=== PATIENT | male | born 1930 | race Caucasian/White ===

== ENCOUNTER → 2016-09-30 | Outpatient (CLI) | payer MEDICARE, OTHER ==
[~2016-09-30] MED LIST: ALBUTEROL2.5 MG/31 INH; BREO ELLIPTA 11 EACH INH; CALCIUM 600 +1 EAC4 PO; CORDARONE,PACE200 MG PO; FLOMAX0.4 MG PO; FLONASE 50 MCG/16 GM NOSE; KCL - MICRO-K10 MEQ PO; LANOXIN (DIGI250 MCG PO; LASIX40 MG PO; LEVAQUIN500 MG PO; LOPRESSOR25 MG PO; NORCO 5-325 TA1 EACH PO; SINGULAIR10 MG PO; SYMBICORT 16010.2 GM INH; TEARS NATURALE30 ML; TERAZOSIN HCL10 MG PO; THERA-VITE W/ B1 TAB PO; XARELTO20 MG PO
== END ==
LOC: GKIC 11:00
DX: R91.1 Solitary pulmonary nodule (principal); Z12.2 Encounter for screening for malignant neoplasm of respiratory organs; I31.3 Pericardial effusion (noninflammatory); E04.1 Nontoxic single thyroid nodule; K76.89 Other specified diseases of liver
CPT/HCPCS: A9552

== ENCOUNTER 2016-10-04 19:08 | Emergency (ER) | payer MEDICARE, OTHER ==
--- NOTE | ~2016-10-04 | ENPV ---
Vascular Upper Extremities Veins Procedure Demographics Patient Name CECI KAY Date of Study 10/04/2016 Patient Number [id number] Gender Male Date of 1930 Age 86 Visit Number [id number] Height Weight Number Room Number BSA BMI Referring Wade IVERSON Interpreting Pj Tony MD Physician Physician Physician Ordering Wade Koch Risk Control Director Physician KISHOR Normalizer Sharan Jara RDCS, RVT, RDMS, MANAGER TALENT ACQUISITION Conclusions Summary 1) Partially occlusive subacute superficial venous thrombus involving a small portion of the right upper mid cephalic vein. 2) Large avascular probable hematoma involving nearly the entire upper biceps region. 3) Preliminary results given to the ER provider at the conclusion of the exam. Procedure Type of Study: Veins:Upper Extremities Veins, Upper Extremity Right. Additional Indications:Cancer, Trauma. Appropriate Use Criteria:9 Patient Status:STAT. Study Location:ER. Technical Quality:Good visualization. Velocities are measured in cm/s ; Diameters are measured in cm Right UE Vein Measurements 2D and Doppler Measurements + + + + + +---------+ !Location !Visualized !Compressibility !Thrombosis !Signal !Reflux ! + + + + + +---------+ !IJV !Yes !Yes !None !Phasic !No ! + + + + + +---------+ !SCV !Yes !Yes !None !Phasic !No ! + + + + + +---------+ !Innominate !Yes !Yes !None !Phasic !No ! + + + + + +---------+ !Axillary !Yes !Yes !None !Phasic !No ! + + + + + +---------+ !Brachial !Yes !Yes !None !Phasic !No ! + + + + + +---------+ !Radial !Yes !Yes !None !Phasic !No ! + + + + + +---------+ !Ulnar !Yes !Yes !None !Phasic !No ! + + + + + +---------+ !Basilic !Yes !Yes !None !Phasic !No ! + + + + + +---------+ !Cephalic !Yes !Partial !Sub-acute !Diminished !No ! + + + + + +---------+ Impressions Right Impression Large bruising in the right biceps region s/p PET scan a few days ago. Cannot rule out extravascular bolus injection into soft tissue. There is no evidence of deep vein thrombosis in the right upper extremity. The basilic vein does not have superficial thrombus. The right mid upper arm cephalic vein has partial superficial thrombus. The age of this thrombus is inconclusive. It is non occlusive. There is a large bruise and probable hematoma related to trauma and or a large extravascular injection from a PET CT injection. It occupies the entire biceps region and is at least 4.8 cm long x 3.3 cm trans. This probable hematoma is avascular. Signature dtt: KIM EMERY dtd: 10/04/162005 Physician Self Edit
--- NOTE | ~2016-10-04 | ER ---
PATIENT'S NAME: ELIZACECI [facility] AGE: 86 Y [address] ROOM: [place] [address] LOCATION: [facility] ADMIT DATE: 10/04/2016 ER/Outpatient Report DISCHARGE DATE: 10/04/2016 FAMILY PHYSICIAN: PHYSICIAN, NO ATTENDING PHYSICIAN: Gissel Erickson Time of Patient's Arrival: 1908 hours. Time of Patient's Evaluation: 1922 hours. CHIEF COMPLAINT: Right arm bruising and swelling. HISTORY OF PRESENT ILLNESS: This is an 86-year-old male who presents to the ER. He states that he had a PET scan done on Friday. They did place an IV in his right AC. He states he did have a little bit of bruising around that site, but that has been improving and then today he went camping and he noticed a bruise to his biceps and then the bruise continued to get bigger and bigger and his muscle in his biceps started to become firm and painful. He states he does not know of any new injury today. He is not for sure if maybe he got bit by a bug or not. He states that he has had no fever or chills. No new shortness of breath. No chest pain. No troubles with bowel movements or urination. No other problems at this time. ALLERGIES: NO KNOWN ALLERGIES. MEDICATIONS: Please see medication list in nurse's notes. PAST MEDICAL HISTORY: 1. COPD and frequent pneumonias in the past. 2. Hypertension. 3. Asthma. 4. He has Afib and a spot on his lung, what they are currently looking at. PAST SURGICAL HISTORY: Right shoulder, cholecystectomy, tonsil, and adenoids. SOCIAL HISTORY: He did quit smoking 45 years ago. Denies any drug or alcohol use. REVIEW OF SYSTEMS: All systems are reviewed and are negative with the exception of those discussed in HPI. PATIENT'S NAME: [facility] AGE: 86 Y [address] ROOM: [place] [address] LOCATION: [facility] ADMIT DATE: 10/04/2016 ER/Outpatient Report DISCHARGE DATE: 10/04/2016 FAMILY PHYSICIAN: PHYSICIAN, INDERJIT ATTENDING PHYSICIAN: Gissel Erickson PHYSICAL EXAMINATION: VITAL SIGNS: Weight 97.5 kg taken, blood pressure 163/78, pulse 86, respirations 18, temperature 98.3 degrees tympanically, and saturations 95% on room air. Arden Coma Score is 15. GENERAL: Alert, calm, well-developed, 86-year-old, in no acute distress. LUNGS: Clear to auscultation bilaterally. HEART: Irregular rate and rhythm. ABDOMEN: Soft, nontender. He has good bowel sounds throughout. EXTREMITIES: He does have full range of motion of his upper extremities. He does have a hematoma noted to his right biceps, it is quite large, approximately measuring 5 x 4 cm. He has some firmness to his biceps, it is slightly tender to palpate. There is no warmth to touch. He does have some healing stages of bruising noted to his right antecubital. He has full range of motion of all limbs. LABORATORY DATA: CBC: White count of 7.6, hemoglobin 13.5, platelets 200, and ANC 5.1. INR is 1.06. CMS was unremarkable. Doppler ultrasound was done of his right upper extremity shows no DVT and this is reported by the tech. IMPRESSION: Hematoma to right upper extremity. ASSESSMENT AND PLAN: We did give the patient a Fulton here in the emergency room and we will send him home with a prescription for Fulton to use as directed. We did place an Jeancarlos wrap to the arm. He needs to monitor his symptoms closely. We would like him to follow up with his primary care physician on Friday or Friday for followup care or sooner if any symptoms worsen. The patient and the patient's understand and agree with care. KANU PEARL PA-C FOR MD FRANCESCO ANTONIO/lidia /[id number] d: t: 10/08/16 1247, OUTPATIENT REPORT
[~2016-10-04 19:08] MED LIST changes: -BREO ELLIPTA 11 EACH INH; -FLONASE 50 MCG/16 GM NOSE; -KCL - MICRO-K10 MEQ PO; -LANOXIN (DIGI250 MCG PO; -LEVAQUIN500 MG PO; -NORCO 5-325 TA1 EACH PO; -TEARS NATURALE30 ML; -THERA-VITE W/ B1 TAB PO
[2016-10-04 19:48] LABS: BASOPHIL % 0.3 %; EOSINOPHIL # 0.2 K/uL (0.0-0.5); HEMATOCRIT 40.1 % (33.0-50.0); HEMOGLOBIN 13.5 g/dL (11.0-16.0); IMMATURE GRANULOCYTE % 0.4 %; LYMPHOCYTE # 1.6 K/uL (0.8-4.0); LYMPHOCYTE % 21.4 %; MCH 30.1 pg (27.0-34.0); MCHC 33.7 gm/dL (32.0-36.5); MCV 89.5 fl (83.0-98.0); MONOCYTE # 0.7 K/uL (0.0-1.0); MONOCYTE % 9.4 %; MPV 9.8 fl (9.4-12.4); NEUTROPHIL # (ANC) 5.1 K/uL (1.4-9.0); NEUTROPHIL % 66.5 %; NRBC % 0 /100WBC (0-0.00); PLATELET COUNT 200 K/uL (150-450); RBC 4.48 M/uL (3.50-5.50); RDW-CV 14.2 % (11.9-14.6); WBC 7.6 K/uL (4.0-11.0)
[2016-10-04 19:57] LABS: INR - (THERAPEUTIC) 1.06 (0.92-1.07); PROTIME 11.1 SECONDS (9.8-11.4); PTT 29 SECONDS (25-32)
[2016-10-04 20:05] LABS: ANION GAP 10.9 (10.0-19.0); CALCIUM 8.7 mg/dL (8.5-10.5); CREATININE 1.1 mg/dL (0.6-1.3); POTASSIUM 3.9 mMol/L (3.7-5.1); TOTAL BILIRUBIN 0.7 mg/dL (0.0-1.5); TOTAL PROTEIN 6.7 g/dL (6.0-8.4)
[2016-10-28] MEDS ORDERED: BREO ELLIPTA 11 EACH INH (10:31)
[2016-10-28] MEDS ORDERED: FLONASE 50 MCG/16 GM NOSE (10:34)
[2016-10-28] MEDS ORDERED: TEARS NATURALE30 ML (10:35)
[2016-10-30] MEDS ORDERED: NORCO 5-325 TA1 EACH PO (15:22)
== END 2016-10-04 21:06 | disposition disaster alternative care site (69) ==
LOC: GMED 19:08
PROVIDERS: Physician Assistant Medical
DX: S40.021A Contusion of right upper arm, initial encounter (principal); I10 Essential (primary) hypertension; J44.9 Chronic obstructive pulmonary disease, unspecified; I48.91 Unspecified atrial fibrillation; Z90.49 Acquired absence of other specified parts of digestive tract; Z90.89 Acquired absence of other organs; Z98.890 Other specified postprocedural states; Z79.899 Other long term (current) drug therapy; Z87.891 Personal history of nicotine dependence; X58.XXXA Exposure to other specified factors, initial encounter; R22.31 Localized swelling, mass and lump, right upper limb

== ENCOUNTER 2016-10-08 22:14 | Inpatient (IN) | payer MEDICARE, OTHER ==
[~2016-10-08] VITALS: Ht 172.7 cm; Wt 98.1 kg
--- NOTE | ~2016-10-08 | ECHO ---
Transthoracic Echocardiography Report (TTE) Demographics Patient Name CECI KAY Date of Study 10/11/2016 Patient Number [id number] Visit Number [id number] Date of 1930 Room Number G6313 Gender Male Number Age 86 year(s) Referring Kirstin Booth Food Vendor Sharan Jara RDCS, Physician RVT, RDMS, FUSION JUNCTURE GRINDER Physician Interpreting Jluis Zhao MD Multi Sensor Operator Physician Supervising Ordering Kirstin Booth MD, MD/MLP Physician Nurse Stress Farm Machinery Set Up Mechanic Conclusions Contractility Score Summary Global Left Ventricular Hypokinesis was noted. Summary Technically difficult exam. The estimated left ventricular ejection fraction is 50%. Mild to moderate left ventricular hypertrophy. Biatrial dilatation. Mild pulmonary hypertension. Small pericardial effusion without tamponade. Sclerotic aortic and mitral valves. Procedure Type of Study TTE procedure:2D Echocardiogram, M-Mode, Doppler , Color Doppler. Procedure Date Date: 10/11/2016 Start: 11:07 AM Study Location: Inpatient Portable Technical Quality: Fair due to lung interference. Indications:Atrial fibrillation and Atrial fibrillation. Additional Indications:Pneumonia Appropriate Use Criteria: 9 Patient Status: Routine Rhythm: Atrial fibrillation HR: 73 bpm BP: 169/77 mmHg M-Mode/2D Measurements LV Diastolic Dimension: 5.4 cm LV Systolic Dimension: 4.33 cm LV Septum Diastolic: 1.35 cm LV PW Diastolic: 1.33 cm AO Root Dimension: 3.2 cm Cardiac Output: 5.96 l/min AV Cusp Separation: 1.9 cm RV Diastolic Dimension: 3.46 cm LA volume: 179 ml IVC Inspiration: 2.2 cm LVOT: 2.2 cm RV Base: 3.5 cm LVOT VTI: 21.5 cm RV Mid: 2.5 cm LV Stroke volume: 81.69 ml TAPSE: 3.1 cm TDI-S': 13 cm/s Doppler Measurements AV Peak Velocity: 1.84 m/s MV Peak E-Wave: 1.13 m/s AV Peak Gradient: 13.54 mmHg AV Mean Gradient: 6 mmHg MV P1/2t: 50 msec LVOT Peak Velocity: 1.25 m/s TR Velocity:2.62 m/s PV Peak Velocity: 1.06 m/s TR Gradient:27.46 mmHg PV Peak Gradient: 4.49 mmHg Estimated RAP:15 mmHg Estimated PASP: 42.46 mmHg Estimated RVSP: 42 mmHg E' Septal Velocity: 0.07 m/s E' Lateral Velocity: 0.08 m/s Findings Left Ventricle The left ventricle is normal in size . Mild to moderate concentric left ventricular hypertrophy. Mildly depressed systolic function. Diastolic function indeterminate due to patient's arrhythmia. Right Ventricle Normal right ventricle structure and function. Left Atrium The left atrium is severely dilated Right Atrium The right atrium is mild to moderately dilated. Dilated IVC with poor inspiratory collapse consistent with elevated RA pressure. Mitral Valve Moderate mitral annular calcification. Moderate calcification of the mitral valve. Moderate mitral regurgitation by color Doppler. Aortic Valve The aortic valve is severely sclerotic. There is trivial aortic regurgitation by color Doppler. Tricuspid Valve Trivial tricuspid regurgitation by color Doppler. There is mild pulmonary hypertension. The pulmonary pressure (RVSP) is 42 mmHg. Pulmonic Valve Mild pulmonic valve regurgitation by color Doppler. Pericardial Effusion Small anterior pericardial effusion. There is no echocardiographic evidence of cardiac tamponade. Miscellaneous Visualized portions of the aortic root and ascending aorta appear normal in size. Pleural Effusion No evidence of pleural effusion. Contractility Score LV regional wall motion:(0-Non visualized 1-Normal 2-Hypokinesis 3-Akinesis 4-Dyskinesis 5-Aneurysm) Signature dtt: Pvael Bazzi (cardio) dtd: 10/11/16 1107 Physician Self Edit
--- NOTE | ~2016-10-08 | ER ---
PATIENT'S NAME: CECI KAY [facility] AGE: 86 Y [address] ROOM: [place] [address] LOCATION: [facility] ADMIT DATE: 10/09/2016 ER/Outpatient Report DISCHARGE DATE: FAMILY PHYSICIAN: Jayy Fulton MD ATTENDING PHYSICIAN: Jayy Fulton HISTORY OF PRESENT ILLNESS: An 86-year-old male who presents today with chief complaint that started approximately an hour or 15 minutes ago. He says he has a cough that is productive of reddish sputum. He also has fatigue, fever, chills, and shortness of breath. The patient says that he felt increasingly short of breath after he woke up from his nap and put himself on some oxygen which he has for his COPD. He says that he was just at an appointment with Dr. Wray a CT surgeon for evaluation of this right upper lobe mass. Said that he felt fine during that appointment and felt fine for that appointment, then went home, and then when he woke up from his nap felt feverish and had some coughing episodes that was productive of reddish sputum. He denies headache, dizziness, lightheadedness, nausea, vomiting, diarrhea, or any other complaints. He denies any chest pain at this time. PAST MEDICAL HISTORY: Hypertension, COPD, atrial fibrillation on digoxin and Xarelto, right upper lobe nodule. SURGICAL HISTORY: Right knee, right shoulder. SOCIAL HISTORY: He is an ex-smoker, but quit 45 years ago. Rare alcohol. Denies any drug use. MEDICATIONS: Please see med list. ALLERGIES: NONE. REVIEW OF SYSTEMS: Reviewed by me and with the exception of those discussed in the HPI. PHYSICAL EXAMINATION: VITAL SIGNS: The patient is 5 feet 8 inches. He weighs 96.1 kilos. Blood pressure 165/75, heart rate 111, respiratory rate 24, temperature is 102 tympanic, saturations are 92% on 2 L nasal cannula. GENERAL: The patient is uncomfortable appearing although nontoxic. He is PATIENT'S NAME: CECI KAY [facility] AGE: 86 Y [address] ROOM: [address] [address] LOCATION: [facility] ADMIT DATE: 10/09/2016 ER/Outpatient Report DISCHARGE DATE: FAMILY PHYSICIAN: Jayy Fulton MD ATTENDING PHYSICIAN: Jayy Fulton speaking in full sentences. He is not actively vomiting or retching at this time. He feels warm to touch. He is able to speak in full sentences. He is coughing intermittently and it is productive of some pinkish sputum as well. He is A and O x4. EYES: His pupils are equal and reactive to light. HEART: His heart rate, at this time, he is tachycardic and it is irregularly irregular. His pulses are strong. He has cap refills less than 2 seconds. ABDOMEN: Soft, nontender, nondistended. No guarding or rebound. LUNGS: They sound clear except at the bases where he had faint crackles left and right, but he has no retractions or splinting but he is tachypneic to the mid 20s at this time. EXTREMITIES: Bruising of that right upper extremity and he has 1+ bilateral pedal edema. EMERGENCY ROOM COURSE: An EKG was done. On my read, his EKG shows atrial fibrillation with RVR. Ventricular rate is 104 at this time. Chest x-ray on my read does not appear to show any acute cardiopulmonary pathology. We did check other blood work including CBC, CMS, lactate, procalcitonin, CRP, digoxin level, cardiac enzymes, BNP, coags, and blood cultures x2. The blood work shows a white count of 12.4, H and H is 12.5/37.4, platelets are 182. PTT is 29, PT is 11.6, INR is 1.1. Sodium is 140, potassium 4, chloride 107, CO2 of 27, anion gap 10, glucose 136, BUN 22, creatinine is 1, alkaline phosphatase is 60, AST is 19, ALT 26. GFR is 68. CK-MB is 1. Troponin is less than 0.04. CRP is 3.47. ProBNP is 1471. Digoxin level is 1.34, so in therapeutic limits. Procalcitonin is less than 0.05. Lactic acid was 1.34. A CT chest was also done for his being on Xarelto and coughing up bloody sputum. On it, it shows that he has a left lower lobe consolidation and a multifocal right lower lobe consolidation with focal patchy areas of consolidation in the right upper lobe and a spiculated right upper lobe 2 cm lung mass, but no PE. This was discussed with the patient. He continues to have an oxygen requirement at this time and be feverish and not feel well. We will be admitting him at this time. We will give him ceftriaxone and azithromycin as he has not had any recent hospitalizations and we will admit him to the hospital. I discussed this with Dr. Singh covering in for Dr. Fulton. The patient admitted in stable condition. IMPRESSION: Pneumonia. KRISTOPHER ROUSSEAU MD PATIENT'S NAME: CECI KAY [facility] AGE: 86 Y [address] ROOM: [address] [address] [facility] ADMIT DATE: 10/09/2016 ER/Outpatient Report DISCHARGE DATE: FAMILY PHYSICIAN: Jayy Fulton MD ATTENDING PHYSICIAN: Jayy Fluton/lidia /[id number] d: 10/09/16 0358 t: 10/09/16 0608, OUTPATIENT REPORT
--- NOTE | ~2016-10-08 | CON ---
PATIENT'S NAME: ELIZACECI [facility] AGE: 86 Y [address] ROOM: [place] [address] LOCATION: [facility] ADMIT DATE: 10/11/2016 Consultation DISCHARGE DATE: FAMILY PHYSICIAN: Jayy Fulton MD ATTENDING PHYSICIAN: Jayy Fulton REFERRING PHYSICIAN: Pavel Hair MD REASON FOR CONSULTATION: V-tach. HISTORY OF PRESENT ILLNESS: This is an 86-year-old gentleman, well known to Dr. Hair, with a history of chronic atrial fib, hypertension, and COPD. He was originally admitted with complaints of shortness of breath, cough, and fever. He was diagnosed with pneumonia. He is currently being treated with IV antibiotics. Yesterday, he had a 7-beat run of wide-complex tachycardia, and renal and magnesium level were obtained. His potassium was replaced and he has not had any further episodes of VT. He had an echocardiogram done in 2016, that showed an EF at that time of 50%. Currently, he denies any exertional chest pain. He does have shortness of breath, but it is no worse than it has been. He denies orthopnea, PND, or pedal edema, and he does not feel any palpitations. PAST MEDICAL HISTORY: 1. Essential hypertension. 2. Chronic atrial fibrillation, status post failed cardioversion 06/20/2015 and 07/18/2015. 3. Long-term anticoagulation. 4. Asthma. 5. COPD. 6. Gastric esophageal reflux disease. 7. Arthritis. 8. Lung mass. 9. Pneumonia x5. PAST SURGICAL HISTORY: 1. Appendectomy in the 1960s. 2. Back surgery. 3. Lumbar diskectomy. 4. Cholecystectomy. 5. Right knee replacement. 6. Open reduction and internal fixation of a humerus fracture. 7. Cardioversion 06/20/2015 as well as 07/18/2015. ALLERGIES: NONE TO MEDICATION. PATIENT'S NAME: ELIZACECI [facility] AGE: 86 Y [address] ROOM: [place] [address] LOCATION: [facility] ADMIT DATE: 10/11/2016 Consultation DISCHARGE DATE: FAMILY PHYSICIAN: Jayy Fulton MD ATTENDING PHYSICIAN: Goldfish,Jayy L HOME MEDICATIONS: 1. Advair Diskus 250/50 mcg aerosol powder 1 puff once a day. 2. Calcium plus vitamin D 600/200 mg 1 tablet daily. 3. Digoxin 0.25 mg once a day. 4. Flomax 0.4 mg 1 capsule 30 minutes after the same meal each day. 5. Lasix 40 mg 1 tablet daily. 6. Ipratropium/albuterol 0.5/2.5 mg in 3 mL nebulizer treatments every 6 hours. 7. Metoprolol tartrate 25 mg 1 tablet b.i.d. 8. Montelukast 10 mg daily. 9. Mucinex 600 mg every 12 hours. 10. Multivitamin daily. 11. Terazosin HCL 10 mg one capsule once a day. 12. Xarelto 20 mg once a day. FAMILY HISTORY: Father at age 77 from heart failure, he had an ID at the age of 60. Mother at age 76, she had pancreatic cancer. He has 1 brother who has a history of MS. He has 2 daughters, both of them have had breast cancer and he has 2 sons who are alive and well. He is to his 2nd . SOCIAL HISTORY: He has a remote history of smoking 2 packs of cigarettes a day for 20 years, he quit in 1972. He has a history of working around [employer]. REVIEW OF SYSTEMS: GENERAL: He had had fevers. He has been fever-free. HEENT: Head: No history of headache. Eyes: No blurred vision or double vision. He wears corrective lenses. Ears: No problems with hearing. Nose: No epistaxis or rhinorrhea. Mouth: No gingival bleeding. Throat: Denies sore throat, hoarseness, or difficulty swallowing. PULMONARY: He has pneumonia at this time. He also has a lung mass that they were unable to get the biopsy. He had a PET scan that was inconclusive and is talking to Cardiothoracic Surgery for possible upper right pneumonectomy. GASTROINTESTINAL: Negative for nausea, vomiting, or diarrhea. He denies bleeding, on Xarelto therapy. : Negative for urinary frequency or urgency. He reports nocturia 3 times at night. ENDOCRINE: Denies hyperglycemia or hypoglycemia. No history of hypothyroidism. NEUROLOGIC: Denies anxiety. DERMATOLOGIC: He denies any rashes, skin lesions, or skin cancers. HEMATOLOGIC: He denies anemia, leukemia, or currently cancer. MUSCULOSKELETAL: He denies arthralgias or myalgias. PATIENT'S NAME: CECI KAY [facility] AGE: 86 Y [address] ROOM: [id number], [place] [address] LOCATION: [facility] ADMIT DATE: 10/11/2016 Consultation DISCHARGE DATE: FAMILY PHYSICIAN: Jayy Fulton MD ATTENDING PHYSICIAN: Jayy Fulton PHYSICAL EXAMINATION: VITAL SIGNS: His height is 68 inches tall, weight was 210 pounds, BMI 31. Blood pressure is in the 120s/80s, heart rate 80-100, O2 saturations 94% on room air. GENERAL: He is alert and oriented. He answers questions appropriately. HEENT: His pupils were equal, round, and react briskly to light. EOMs are intact. NECK: Soft and supple. No lymphadenopathy or thyromegaly. JVD is flat. LUNGS: Lung sounds were clear anteriorly with few dry crackles noted in the bases. CV: Irregular with normal S1, S2. ABDOMEN: Soft. Bowel sounds are present. EXTREMITIES: Trace of peripheral edema. Distal pulses are 2+. NEUROLOGICAL: He is alert, oriented to person, place, and time. His gait is steady when he is up. DERMATOLOGIC: Skin is warm, dry, and pink. He does have large hematoma on the right arm from injection from his PET scan. The hematoma also has drained into his right lateral chest and abdomen. There are no obvious rashes with this. PSYCHIATRIC: Mood and affect are appropriate. ASSESSMENT: 1. Chronic atrial fibrillation. We will continue with rate control and long- term anticoagulation. 2. Ventricular tachycardia versus atrial fibrillation with aberrancy. We will discuss the rhythm with Dr. Hair. We are going to recheck an echocardiogram. 3. Lung mass. At some point in time, he will follow up with Cardiothoracic Surgery for partial lobectomy. The assessment and plan, history of present illness, physical exam are per Dr. Hair. Further recommendations will be forthcoming as information becomes available. SHANNAN HALL APRN FOR [employer] MD TGP/juvenall /[id number] d: 10/11/161955 t: 10/24/16 1620, CONSULTATION REPORT
--- NOTE | ~2016-10-08 | HP ---
PATIENT'S NAME: CECI KAY [facility] AGE: 86 Y [address] ROOM: [place] [id number] LOCATION: GPCU ADMIT DATE: 10/09/2016 History & Physical DISCHARGE DATE: FAMILY PHYSICIAN: Jayy Fulton MD ATTENDING PHYSICIAN: Jayy Fulton DATE OF SERVICE: CHIEF COMPLAINT: Pneumonia. HISTORY OF PRESENT ILLNESS: The patient is an 86-year-old male, who presented to the emergency room tonight after having increased fatigue, cough, and shortness of breath earlier today. States that "it just kind of hit him all of a sudden, felt very fatigued, went laid down, slept for a long period of time, woke up, had difficulty with breathing." He does have home O2, which he did start and then presented to the emergency room. Has had a cough productive of reddish sputum, he states. Has also felt chilled. Approximately a week ago, has undergone recent evaluation for a right upper lobe mass and had a recent PET scan. He really felt fine up until today. He did go to the emergency room on Friday due to his right arm being mildly tender and bruised from his PET scan IV insertion area. PAST MEDICAL HISTORY: Significant for hypertension, COPD, atrial fibrillation, and recent right upper lung nodule. PAST SURGICAL HISTORY: Right knee and right shoulder. SOCIAL HISTORY: He is an ex-smoker, quit 45 years ago. Very rare alcohol. No illicit drug use. CURRENT MEDICATIONS: Include, 1. Albuterol nebulizers 4 times daily. 2. Calcium with vitamin D daily. 3. Digoxin 250 mcg daily. 4. Breo 100 one puff every day. 5. Lasix 40 mg daily. 6. Lopressor 25 mg twice daily. 7. Singulair 10 mg daily. 8. Multivitamin daily. PATIENT'S NAME: [facility] AGE: 86 Y [address] ROOM: [address] [address] LOCATION: GPCU ADMIT DATE: 10/09/2016 History & Physical DISCHARGE DATE: FAMILY PHYSICIAN: Jayy Fulton MD ATTENDING PHYSICIAN: Jayy Fulton 9. Xarelto 20 mg daily. 10. Flomax 0.4 mg at bedtime. 11. 10 mg at bedtime. ALLERGIES: HAS NO MEDICAL ALLERGIES. REVIEW OF SYSTEMS: GENERAL: No recent weight loss or weight gain. HEENT: Negative. CARDIOVASCULAR: Does have atrial fibrillation. PULMONARY: Does have hemoptysis, cough, shortness of breath, and history of COPD. GI: No diarrhea, no constipation. : Negative. MUSCULOSKELETAL: Negative. PHYSICAL EXAMINATION: GENERAL: This is an alert, very pleasant male, in no acute distress, sitting up in his chair this morning. VITAL SIGNS: Stable. The patient is afebrile this morning. T-max of 102 on admission. HEENT: Mouth has moist mucous membranes. Pupils are reactive. HEART: Irregularly irregular. LUNGS: Crackles on the bases. ABDOMEN: Soft, nontender, nondistended. No rebound. EXTREMITIES: Does have diffuse ecchymoses of his right upper extremity, and does have trace edema bilaterally in lower extremities. LABORATORY DATA: EKG does show atrial fibrillation with a controlled rate. Chest x-ray was negative. CT per PE protocol was performed, which did show bilateral lower lobe consolidations as well as the right upper nodule that is currently getting worked up. He has no pulmonary emboli. Lactate normal at 1.2. CBC: White count of 12,400, hemoglobin 12.5, and hematocrit 37.4; 89.7% neutrophils. CMP with a glucose of 136, calcium 8.4. Liver tests normal. CRP of 3.47. ProBNP of 1471. Digoxin 1.34. Procalcitonin is negative. ASSESSMENT: 1. Bilateral lower lobe pneumonia. 2. Right upper lobe nodule. 3. History of chronic obstructive pulmonary disease. PATIENT'S NAME: CECI KAY [facility] AGE: 86 Y [address] ROOM: [place] [address] LOCATION: GPCU ADMIT DATE: 10/09/2016 History & Physical DISCHARGE DATE: FAMILY PHYSICIAN: Jayy Fulton MD ATTENDING PHYSICIAN: Jayy Fulton PLAN: At this time, we will admit. He was started on ceftriaxone and azithromycin in the emergency room, and we will continue this. We will have Respiratory Therapy see him. We will get a sputum culture, and we will continue home meds. MD BARRON REDMAN/lidia /[id number] D: [id number] T: [id number] HISTORY & PHYSICAL
[2016-10-08 22:53] LABS: BASOPHIL % 0.2 %; EOSINOPHIL % 0.2 %; HEMATOCRIT 37.4 % (33.0-50.0); HEMOGLOBIN 12.5 g/dL (11.0-16.0); IMMATURE GRANULOCYTE % 0.3 %; LYMPHOCYTE # 0.5 K/uL (0.8-4.0); LYMPHOCYTE % 4.2 %; MCH 29.9 pg (27.0-34.0); MCHC 33.4 gm/dL (32.0-36.5); MCV 89.5 fl (83.0-98.0); MONOCYTE # 0.7 K/uL (0.0-1.0); MONOCYTE % 5.4 %; MPV 10.4 fl (9.4-12.4); NEUTROPHIL # (ANC) 11.1 K/uL (1.4-9.0); NEUTROPHIL % 89.7 %; NRBC % 0 /100WBC (0-0.00); PLATELET COUNT 182 K/uL (150-450); RBC 4.18 M/uL (3.50-5.50); RDW-CV 14.3 % (11.9-14.6); WBC 12.4 K/uL (4.0-11.0)
[2016-10-08 23:02] LABS: PROTIME 11.6 SECONDS (9.8-11.4); PTT 29 SECONDS (25-32)
[2016-10-08 23:15] LABS: ALBUMIN 3.5 gm/dL (3.5-5.0); ALK PHOS 60 IU/L (33-138); ALT 26 IU/L (12-78); AST 19 IU/L (10-40); BLOOD UREA NITROGEN 22 mg/dL (6-24); CALCIUM 8.4 mg/dL (8.5-10.5); CHLORIDE 107 mMol/L (96-110); CO2 27 mMol/L (22-32); SODIUM 140 mMol/L (135-145); TOTAL PROTEIN 6.2 g/dL (6.0-8.4)
[2016-10-08 23:20] LABS: TOTAL BILIRUBIN 1.2 mg/dL (0.0-1.5)
[2016-10-09] MEDS ORDERED: BREO ELLIPTA 11 EACH INH (02:19)
[2016-10-09] MEDS ORDERED: LANOXIN (DIGI250 MCG PO (02:20)
[2016-10-09] MEDS ORDERED: THERA-VITE W/ B1 TAB PO (02:20)
--- NOTE | 2016-10-09 02:21 | NUR ---
Pt is an 86 y/o male admitted for bilateral pneumonia. Patient reguarly sees Dr. Fulton. Patient was feeling tired after supper and took a nap which is not normal for patient. Woke up around 2100 feeling short of breath. Has supp O2 at home and applied 2L O2. After 30min, patient decided to go to ER. Upon ER arrival, temp 102.0, BP 165/70, 111 pulse, resp 24, 92% on 2L. Coughed up red sputum. R) upper extremity with bruising, redness, swelling. Bilat lower ext edema. HX of afib, htn, asthma, COPD, hard of eharing, VPH cataracts, dentures. Quit smoking in 1970s. Has nodule in RUL. Takes Xarelto. No known allergies.
--- NOTE | 2016-10-09 04:26 | NUR ---
Significant Event: A/O x3. 99.3-98.7 temps. BP 133/70. HR 90s. Low 90%s on 2-3L. LS coarse/crackles throughout. Occasional cough. RUE redness/swelling with some pain. Pt states RUE condition from IV infilitration from PET scan w/ dye that was performed last week. NS @ 50/hr. Reg diet. Up standby assist. Bilat lower leg edema. Cooperative with cares. Follow up: Continue to monitor per plan of care.
[2016-10-09] MEDS ORDERED: LOPRESSOR25 MG PO (08:32)
--- NOTE | 2016-10-09 14:14 | NUR ---
Introduced self and role of care management to pt and . They live in town [place] and is very active. He does not use any dme and house is all set up for them. At this time denies needs and plans on going home tomorrow maybe.
--- NOTE | 2016-10-09 18:12 | NUR ---
Significant Event:VSS.RA.STAND BY ASSIST. AT THE BEDSIDE. Follow up:WILL CONTINUE TO MONITOR PER PLAN OF CARE.
[2016-10-10 04:23] LABS: BASOPHIL % 0.3 %; EOSINOPHIL # 0.1 K/uL (0.0-0.5); EOSINOPHIL % 1.7 %; HEMOGLOBIN 10.5 g/dL (11.0-16.0); IMMATURE GRANULOCYTE % 0.4 %; LYMPHOCYTE # 1.1 K/uL (0.8-4.0); LYMPHOCYTE % 14.4 %; MCH 29.8 pg (27.0-34.0); MCHC 32.8 gm/dL (32.0-36.5); MCV 90.9 fl (83.0-98.0); MONOCYTE # 0.8 K/uL (0.0-1.0); MONOCYTE % 10.2 %; MPV 10.6 fl (9.4-12.4); NEUTROPHIL # (ANC) 5.6 K/uL (1.4-9.0); NRBC % 0 /100WBC (0-0.00); PLATELET COUNT 147 K/uL (150-450); RBC 3.52 M/uL (3.50-5.50); RDW-CV 14.5 % (11.9-14.6); WBC 7.7 K/uL (4.0-11.0)
--- NOTE | 2016-10-10 05:20 | NUR ---
Significant Event: PATIENT IS A/O X3. VSS. HER 50-90'S. SBP 110-120'S. AFEBRILE. 02 SATS IN MID 90'S ON RA. NO C/O PAIN. LUNGS CLEAR/DIM TO SLIGHTLY COARSE IN UPPER LOBES. UP WITH SBA. BOWELS HYPOACTIVE. C/O CONSTIPATION BUT HAD BM YESTERDAY. VOIDS PER URINAL. RIGHT ARM ECCHYMOSIS/SWELLING R/T PREVIOUS IV IN FILTRATION. HAS 2+ EDEMA TO THAT ARM. LEFT ARM ECCHYMOTIC WELL. FRAGILE SKIN. LEFT AC WITH NS AT 50 ML/HR. CONTINUES TO HAVE 1-2+ GENERALIZED EDEMA. ON IV ABX. CONTINUE TO MONITOR PER PLAN OF CARE. Follow up: POSSBILY HOME IN NEXT DAY OR SO. STILL UNCERTAIN ABOUT PLAN OF MASS TO RIGHT UPPER LOBE IN LUNG.
[2016-10-10 14:20] LABS: ANION GAP 8.7 (10.0-19.0); MAGNESIUM 2.2 mg/dL (1.8-2.6); POTASSIUM 3.7 mMol/L (3.7-5.1)
[2016-10-10 14:23] LABS: PHOSPHORUS 1.6 mg/dL (2.5-4.9)
--- NOTE | 2016-10-10 15:37 | NUR ---
Significant Event:Patient has been up in hallway twice with Pul Rehab and tolerated well. Did have 8 beats of V-Tach this morning, asymptomatic. Dr. Bazzi consult. Renal and Mg done. K+ 3.7, Mg++ 2.2. He will get KCl 40 mEq PO today. Has not had any further rhythm changes. Does report feeling better. Is still coughing up red tinged phlem. Appetite good. IVF stopped. Remains on RA. Follow up:Hoping to go home tomorrow
--- NOTE | 2016-10-10 19:40 | NUR ---
PATIENT NOTE: THIS NURSE TOOK OVER THE CARES OF THIS PT. AT 1600. PT. A/O X 3. UP IN CHAIR. DENIES PAIN. HR CHRONIC A-FIB, RATES 60-70'S. NO RESP. DISTRESS, ON ROOM AIR. AT BEDSIDE.
--- NOTE | 2016-10-11 07:12 | NUR ---
Significant Event: PATIENT AFEBRILE. VSS. PATIENT HAS HAD DOROTHY WRAP TO DEVIN IN PLACE THIS SHIFT. PATIENT REPORTED ARM FEELING TIGHTER THAN NORMAL SO DOROTHY WRAP WAS REMOVED. PATIENT CURRENTLY SITTING UP IN CHAIR WITH ARM ELEVATED ON PILLOW. 1+ EDEMA TO RIGHT HAND NOTED THIS SHIFT. PATIENT HAS BEEN UP STANDING AT BEDSIDE TO USE URINAL THIS SHIFT. EDEMA TO BILATERAL ANKLES AND FEET NOTED. WORSE ON R) EXTREMITY. Follow up:
--- NOTE | 2016-10-11 12:39 | NUR ---
Introduced care management services to patient and spouse at bedside, known to me from my community. Lives in [place] with spouse, plans on going home on discharge. Denies concerns about going home or any needs right now. Cottage Master will follow and assist with dc planning as needs identified.
--- NOTE | 2016-10-11 16:48 | NUR ---
SIGNIFICANT EVENT: PT IS ALERT AND ORIENTED. STAND BY ASSIST WITH SUPERVISION. USES URINAL AT BEDSIDE. CHRONIC A-FIB. HR ELEVATED INTO THE 130'S WHEN WALKING AT AROUND 1500. PT IS SLIGHTLY SOB WITH EXERTION BUT TOLERATES ACTIVITY WELL. PT HAS BRUISING ON BOTH ARMS AND DOWN SIDE OF UNKNOWN SPECIFIC CAUSE. PT USES INCENTIVE SPIROMETER WHEN ENCOURAGED. STILL COUGHING UP BLOOD ON OCCASSION. PULMONARY CONSULT STATED PNEUMONIA CAUSE FOR THIS. 1+ EDEMA TO UPPER AND LOWER EXTREMITIES. IV SL LEFT FOREARM FLUSHES WELL NO COMPLICATIONS. SBP 130-160'S. O2 94-97% RA. AFEBRILE. PLEASANT AND COOPERATIVE WITH CARES. FOLLOW UP: CONTINUE PLAN OF CARE.
--- NOTE | 2016-10-12 05:08 | NUR ---
Significant Event: A/O x3. Afebrile. denies pain. VSS on RA. SBP 129-148. HR 70-80s. LS crackles in bases. Bilat upper extremities with eccygmosis. LFA IV infiltrated, Dc'd. Rt wrist IV started. IV antibiotics given. Cooperative with cares. Follow up: Continue to monitor per plan of care.
--- NOTE | 2016-10-12 09:25 | NUR ---
PT SCREENED D/T LOS. EST NEEDS: [id number] KCALS, 84-98 GM PROTEIN, 1 ML/KCAL FLUIDS. INTAKE 100%. NO NUTRITION-RELATED DX IDENTIFIED. WILL F/U IN 7-10 DAYS.
[2016-10-12] MEDS ORDERED: LEVAQUIN500 MG PO (10:50)
[2016-10-12 11:27] LABS: BASOPHIL % 0.3 %; EOSINOPHIL # 0.1 K/uL (0.0-0.5); EOSINOPHIL % 2.2 %; HEMATOCRIT 34.3 % (33.0-50.0); HEMOGLOBIN 11.2 g/dL (11.0-16.0); IMMATURE GRANULOCYTE % 0.3 %; MCH 29.6 pg (27.0-34.0); MCHC 32.7 gm/dL (32.0-36.5); MCV 90.7 fl (83.0-98.0); MONOCYTE # 0.6 K/uL (0.0-1.0); MONOCYTE % 9.7 %; MPV 9.7 fl (9.4-12.4); NEUTROPHIL # (ANC) 4.6 K/uL (1.4-9.0); NEUTROPHIL % 71.5 %; NRBC % 0 /100WBC (0-0.00); RBC 3.78 M/uL (3.50-5.50); RDW-CV 14.1 % (11.9-14.6); WBC 6.4 K/uL (4.0-11.0)
[2016-10-12 11:29] LABS: PLATELET COUNT 217 K/uL (150-450)
[2016-10-12] MEDS ORDERED: KCL - MICRO-K10 MEQ PO (12:02)
--- NOTE | 2016-10-12 14:07 | NUR ---
Patient was given dismissal instructions including: dc home meds, rx given to , activity and diet restrictins, follow up appointments, and written education on pneumonia and treatment. Patient and verbalized understanding of instructions. IV access and school lunch monitor dc'd. Wheeled to [facility] entrance accompanied by this RN.
[2016-10-28] MEDS ORDERED: BREO ELLIPTA 11 EACH INH (10:31)
[2016-10-28] MEDS ORDERED: FLONASE 50 MCG/16 GM NOSE (10:34)
[2016-10-28] MEDS ORDERED: TEARS NATURALE30 ML (10:35)
[2016-10-30] MEDS ORDERED: NORCO 5-325 TA1 EACH PO (15:22)
== END 2016-10-12 12:15 | disposition disaster alternative care site (69) | DRG 190 ==
LOC: GMED 22:14 → GPCU 10-09 01:08
PROVIDERS: Emergency Medicine; Family Medicine; Nurse Practitioner Acute Care; ADMIT Family Medicine
DX: J44.0 Chronic obstructive pulmonary disease with (acute) lower respiratory infection (principal); J18.9 Pneumonia, unspecified organism; I48.2 Chronic atrial fibrillation; R91.1 Solitary pulmonary nodule; Z79.01 Long term (current) use of anticoagulants; K21.9 Gastro-esophageal reflux disease without esophagitis; M19.90 Unspecified osteoarthritis, unspecified site; Z87.891 Personal history of nicotine dependence; Z96.651 Presence of right artificial knee joint
CPT/HCPCS: G0237; G0424; J0456; J0696; J7030; J7040; Q9967